=== PATIENT | male | born 1965 | race Caucasian/White ===

== ENCOUNTER 2017-10-10 19:53 | Inpatient (IN) ==
[2017-10-10] MEDS ORDERED: SODIUM CHLORIDE 0.9% 1,000 ML IV STA (20:34)
[2017-10-10 21:48] LABS: Apearance,Urine CLEAR (Clear); Bacteria,Urine Occasional /HPF (Few); Bilirubin,Urine Negative (Negative); Blood, Urine Large mg/dL (Negative); Glucose,Urine (UA) 50 mg/dL (Negative); Ketones,Urine Negative (Negative); Nitrite,Urine Negative (Negative); Protein,Urine Negative; Urine Color Straw (Yellow); Urine Specific Gravity 1.003 (1.001-1.035); Urine Urobilinogen < 2.0 EU/DL (0.2-1.0); WBC,Urine 8 /HPF (0-6)
[2017-10-10 22:02] LABS: Albumin 4.2 G/DL (3.4-5.0); Basophils % 0.1 % (0.0-0.8); Bilirubin,Total 2.3 MG/DL (0.2-1.0); Calcium 9.4 MG/DL (8.5-10.1); Hematocrit 42.1 VOL% (42.0-52.0); Hemoglobin 15.1 GM/DL (14.0-18.0); Immature Granulocytes % 0.8 %; Immature Granulocytes Absolute 0.16 #; Lactic Acid 1.7 MMOL/L (0.4-2.0); Lymphocytes # 1.1 10*3/uL (1.4-4.0); Lymphocytes % 5.3 % (21.2-54.2); Mean Corpuscular HGB Conc 35.9 GM/DL (32-36); Mean Corpuscular Hemoglobin 32 PG (27-34); Mean Corpuscular Volume 88.6 FL (87-102); Mean Platelet Volume 10.7 FL (9.6-12.0); Monocytes # 1.5 10*3/uL (0.11-0.8); Monocytes % 7.2 % (1.7-12.7); Neutrophils # 17.6 10*3/uL (1.4-7.4); Neutrophils % 86.6 % (38.7-73.9); Osmolality,Calculated 282.3 MOS/KG (273-304); Platelet Count 160 T/CUMM (130-400); Potassium 3.2 MMOL/L (3.5-5.1); Red Blood Count 4.75 MC/CUMM (3.8-5.5); Red Cell Distribution Width 12.8 % (9.3-17.3); Total Protein 6.9 G/DL (6.4-8.3); White Blood Count 20.4 T/CUMM (4-12)
[2017-10-10] MEDS ORDERED: CEFEPIME 2,000 MG in SODIUM CHLORIDE 0.9% 100 ML IV STA (22:09)
[2017-10-10] MEDS ORDERED: VANCOMYCIN INJ 1,000 MG in SODIUM CHLORIDE 0.9% 250 ML IV STA (22:10)
[2017-10-10 22:30] LABS: Band Neutrophils 1 % (0-10); Lymphocytes 8 % (20-55); Platelet Estimate Normal; Segmented Neutrophils 89 % (50-85); Total Cells Counted 100
[2017-10-10] MEDS ORDERED: ONDANSETRON 4 MG/2 ML VIAL IV PRN (23:58)
[2017-10-11] MEDS ORDERED: OXYBUTYNIN 5 MG TABLET PO PRN (00:01)
[2017-10-11] MEDS ORDERED: POTASSIUM CHLORIDE 20 MEQ TABLET PO ONE (00:30)
[2017-10-11] MEDS: buPROPion SR 100 MG TABLET PO SCH ×3 (02:39→20:17)
[2017-10-11] MEDS: cefTRIAXone 2,000 MG in SYRINGE 1 EACH IV SCH ×4 (02:42→15:16)
[2017-10-11 03:06] LABS: Basophils % 0.2 % (0.0-0.8); Hematocrit 39.8 VOL% (42.0-52.0); Hemoglobin 14.1 GM/DL (14.0-18.0); Immature Granulocytes % 0.9 %; Immature Granulocytes Absolute 0.16 #; Lymphocytes # 1.1 10*3/uL (1.4-4.0); Lymphocytes % 5.8 % (21.2-54.2); Mean Corpuscular HGB Conc 35.4 GM/DL (32-36); Mean Corpuscular Hemoglobin 32 PG (27-34); Mean Platelet Volume 10.4 FL (9.6-12.0); Monocytes # 0.8 10*3/uL (0.11-0.8); Monocytes % 4.2 % (1.7-12.7); Neutrophils # 16.4 10*3/uL (1.4-7.4); Neutrophils % 88.9 % (38.7-73.9); Platelet Count 147 T/CUMM (130-400); Red Blood Count 4.42 MC/CUMM (3.8-5.5); Red Cell Distribution Width 13.1 % (9.3-17.3); White Blood Count 18.4 T/CUMM (4-12)
[2017-10-11 03:36] LABS: Albumin 3.8 G/DL (3.4-5.0); Bilirubin,Total 3.3 MG/DL (0.2-1.0); Calcium 8.8 MG/DL (8.5-10.1); Potassium 3.5 MMOL/L (3.5-5.1); Total Protein 6.6 G/DL (6.4-8.3)
[2017-10-11] MEDS: VANCOMYCIN INJ 1,500 MG in SODIUM CHLORIDE 0.9% 500 ML IV SCH ×3 (06:26→22:47)
[2017-10-11] MEDS: PANTOPRAZOLE 40 MG TABLET PO SCH (09:10)
[2017-10-11] MEDS: OMEGA 3 ACID ETHYL ESTERS 1 GM CAPSULE PO SCH ×2 (09:10→20:16)
[2017-10-11] MEDS: FINASTERIDE 5 MG TABLET PO SCH (09:10)
[2017-10-11] MEDS: TAMSULOSIN 0.4 MG CAPSULE PO SCH ×2 (09:10→20:17)
[2017-10-11] MEDS: ACETAMINOPHEN 325 MG TABLET PO PRN (09:11)
[2017-10-12] MEDS: cefTRIAXone 2,000 MG in SYRINGE 1 EACH IV SCH ×3 (05:31→18:26)
[2017-10-12 08:02] LABS: Basophils % 0.3 % (0.0-0.8); Eosinophils % 0.2 % (0.00-10.9); Hematocrit 38.8 VOL% (42.0-52.0); Hemoglobin 14.2 GM/DL (14.0-18.0); Immature Granulocytes % 0.5 %; Immature Granulocytes Absolute 0.06 #; Lymphocytes # 0.8 10*3/uL (1.4-4.0); Lymphocytes % 7.1 % (21.2-54.2); Mean Corpuscular HGB Conc 36.6 GM/DL (32-36); Mean Corpuscular Hemoglobin 32 PG (27-34); Mean Corpuscular Volume 88.6 FL (87-102); Mean Platelet Volume 10.9 FL (9.6-12.0); Monocytes # 0.6 10*3/uL (0.11-0.8); Monocytes % 5.1 % (1.7-12.7); Neutrophils # 9.8 10*3/uL (1.4-7.4); Neutrophils % 86.8 % (38.7-73.9); Platelet Count 145 T/CUMM (130-400); Red Blood Count 4.38 MC/CUMM (3.8-5.5); Red Cell Distribution Width 13.2 % (9.3-17.3); White Blood Count 11.3 T/CUMM (4-12)
[2017-10-12 08:26] LABS: Osmolality,Calculated 278.4 MOS/KG (273-304); Potassium 3.5 MMOL/L (3.5-5.1)
[2017-10-12] MEDS: VANCOMYCIN INJ 1,500 MG in SODIUM CHLORIDE 0.9% 500 ML IV SCH (09:00)
[2017-10-12] MEDS: buPROPion SR 100 MG TABLET PO SCH ×2 (09:02→21:14)
[2017-10-12] MEDS: TAMSULOSIN 0.4 MG CAPSULE PO SCH ×2 (09:02→21:15)
[2017-10-12] MEDS: ENOXAPARIN 40 MG/0.4 ML SYRINGE SUBCUT SCH (09:02)
[2017-10-12] MEDS: OMEGA 3 ACID ETHYL ESTERS 1 GM CAPSULE PO SCH ×2 (09:03→21:14)
[2017-10-12] MEDS: PANTOPRAZOLE 40 MG TABLET PO SCH (09:03)
[2017-10-12] MEDS: FINASTERIDE 5 MG TABLET PO SCH (09:04)
[2017-10-12] MEDS: DOCUSATE SODIUM 100 MG CAPSULE PO SCH (10:46)
[2017-10-12] MEDS: CIPROFLOXACIN INJ 400 MG in PREMIX 1 EACH IV SCH (15:37)
[2017-10-12] MEDS: ACETAMINOPHEN 325 MG TABLET PO PRN (21:14)
[2017-10-13] MEDS: CIPROFLOXACIN INJ 400 MG in PREMIX 1 EACH IV SCH ×2 (04:10→15:06)
[2017-10-13] MEDS: cefTRIAXone 2,000 MG in SYRINGE 1 EACH IV SCH ×2 (06:02→17:29)
[2017-10-13] MEDS: OMEGA 3 ACID ETHYL ESTERS 1 GM CAPSULE PO SCH ×2 (08:19→20:42)
[2017-10-13] MEDS: ENOXAPARIN 40 MG/0.4 ML SYRINGE SUBCUT SCH (08:19)
[2017-10-13] MEDS: buPROPion SR 100 MG TABLET PO SCH ×2 (08:19→20:42)
[2017-10-13] MEDS: TAMSULOSIN 0.4 MG CAPSULE PO SCH ×2 (08:20→20:42)
[2017-10-13] MEDS: PANTOPRAZOLE 40 MG TABLET PO SCH (08:20)
[2017-10-13] MEDS: FINASTERIDE 5 MG TABLET PO SCH (08:20)
[2017-10-13] MEDS: DOCUSATE SODIUM 100 MG CAPSULE PO SCH (08:20)
[2017-10-13] MEDS ORDERED: BISACODYL 5 MG TABLET PO ONE (08:46)
[2017-10-14] MEDS: CIPROFLOXACIN INJ 400 MG in PREMIX 1 EACH IV SCH (03:14)
[2017-10-14] MEDS: cefTRIAXone 2,000 MG in SYRINGE 1 EACH IV SCH (07:06)
[2017-10-14 07:47] LABS: Basophils % 0.5 % (0.0-0.8); Eosinophils # 0.1 10*3/uL (0.0-0.87); Eosinophils % 1.6 % (0.00-10.9); Hematocrit 41.6 VOL% (42.0-52.0); Immature Granulocytes % 0.9 %; Immature Granulocytes Absolute 0.04 #; Lymphocytes # 1.2 10*3/uL (1.4-4.0); Lymphocytes % 25.9 % (21.2-54.2); Mean Corpuscular HGB Conc 36.1 GM/DL (32-36); Mean Corpuscular Hemoglobin 32 PG (27-34); Mean Corpuscular Volume 87.4 FL (87-102); Mean Platelet Volume 10.4 FL (9.6-12.0); Monocytes # 0.7 10*3/uL (0.11-0.8); Monocytes % 15.5 % (1.7-12.7); Neutrophils # 2.5 10*3/uL (1.4-7.4); Neutrophils % 55.6 % (38.7-73.9); Platelet Count 182 T/CUMM (130-400); Red Blood Count 4.76 MC/CUMM (3.8-5.5); Red Cell Distribution Width 13.2 % (9.3-17.3); White Blood Count 4.4 T/CUMM (4-12)
[2017-10-14 08:25] LABS: Albumin 3.6 G/DL (3.4-5.0); Bilirubin,Total 1.2 MG/DL (0.2-1.0); Calcium 9.7 MG/DL (8.5-10.1); Osmolality,Calculated 279.3 MOS/KG (273-304); Potassium 3.7 MMOL/L (3.5-5.1); Total Protein 7.5 G/DL (6.4-8.3)
[2017-10-14] MEDS: buPROPion SR 100 MG TABLET PO SCH (10:11)
[2017-10-14] MEDS: FINASTERIDE 5 MG TABLET PO SCH (10:11)
[2017-10-14] MEDS: PANTOPRAZOLE 40 MG TABLET PO SCH (10:12)
[2017-10-14] MEDS: TAMSULOSIN 0.4 MG CAPSULE PO SCH (10:12)
[2017-10-14] MEDS: DOCUSATE SODIUM 100 MG CAPSULE PO SCH (10:12)
[2017-10-14] MEDS: ENOXAPARIN 40 MG/0.4 ML SYRINGE SUBCUT SCH (10:13)
[2017-10-14] MEDS: OMEGA 3 ACID ETHYL ESTERS 1 GM CAPSULE PO SCH (10:14)
[2017-10-14 11:45] VITALS: BP 117/73
== END 2017-10-14 12:00 | disposition home or self-care (01) | DRG 872 ==
LOC: N.ED 19:53 → SUATTDRO 23:52 → N.EDINP 23:52 → N.5E 10-11 00:48
PROVIDERS: ADMIT Family Medicine; ATTEND Internal Medicine